=== PATIENT | female | born 1990 | race Caucasian/White ===

== ENCOUNTER → 2020-08-10 | Outpatient (CLI) | payer BC ==
[2020-08-10 14:39] VITALS: BP 140/93; PULSE 102; RESP 18; TEMP 98.3; BMI 48.2
[2020-08-10 16:36] LABS: HCT 42.8 % (34.0-46.0); HGB 14.5 gm/dL (11.4-16.0); MCH 27.2 pg (25.0-35.0); MCHC 33.8 g/dL (31.0-37.0); MCV 80.5 fL (80.0-100.0); Mean Platelet Volume 8.3; Platelet Count 286 k/uL (150-450); RBC 5.33 m/uL (3.80-5.40); RDW 14.7 % (11.5-15.5); WBC 10.5 k/uL (3.8-10.6)
[2020-08-11 03:16] LABS: African American GFR (CKD) 142.8 (60.0-200.0); Albumin 4.7 g/dL (3.80-4.90); Albumin/Globulin Ratio 2.14 (1.60-3.17); Calcium 10.6 mg/dL (8.7-10.3); Globulin 2.2 g/dL (1.6-3.3); Non-African American GFR(CKD) 123.2 (60.0-200.0); Potassium 4.3 mmol/L (3.5-5.5); Total Bilirubin 0.4 mg/dL (0.3-1.2); Total Protein 6.9 g/dL (6.2-8.2)
[2020-08-11 03:45] LABS: Folate, Serum 16.2 ng/mL
--- NOTE | 2020-09-08 12:48 | P.HPBAR ---
Bariatric H&P - History & Physicial H&P Date: 08/10/20 History & Physicial: Visit/CC: initial visit Patient initial contact: Initial weight: Initial weight in pounds: Height: 5 ft 4 in Initial BMI: Last weight: Current weight: 127.369 kg Current weight in pounds: 280.80 Current BMI: 48.2 [place] body weight (based on NIH guidelines): 54.431 kg Excess body weight loss: The patient is a 29 year-old F who presents for Bariatric Assessment. Patient presents today for presurgical consultation. She's had lifetime process obesity. Her BMI is 48. She has an excellent understanding of the sleeve gastrectomy. Past Medical History Past Medical History: Thyroid Disorder Additional Past Medical History / Comment(s): hypothyroidism History of Any Multi-Drug Resistant Organisms: None Reported Past Surgical History: Section, Cholecystectomy, Tubal Ligation Additional Past Surgical History / Comment(s): BENIGN TUMOR REMOVED FROM SCALP Past Anesthesia/Blood Transfusion Reactions: No Reported Reaction Additional Past Anesthesia/Blood Transfusion Reaction / Comm: PT ADOPTED. BIOLO GICAL FAMILY HX UNKNOWN Past Psychological History: No Psychological Hx Reported Smoking Status: Never smoker Past Alcohol Use History: None Reported Past Drug Use History: None Reported Surgical - Exam Vital Signs Temp Pulse Resp BP 98.3 F 102 H 18 140/93 08/10/20 14:23 08/10/20 14:23 08/10/20 14:23 08/10/20 14:23 - General well developed, well nourished, no distress - Eyes PERRL - ENT normal pinna - Neck no masses - Respiratory normal expansion - Cardiovascular Rhythm: regular - Abdomen Abdomen: soft, non tender Results - Labs 08/10/20 15:09 08/10/20 15:09 Bariatric Assessment & Plan Plan: Morbid obesity. Patient is an ex-understands the gastric. We went over the risks and benefits of procedure including gastric stapling disruption, bleeding and scarring. She'll be scheduled for EGD. Bariatric Checklist Checklist: Plan: Checklist: EGD: 1. Hiatal hernia: 2. H. Pylori: HgbA1c: Vitamin D: Smoking: Never smoker Primary care physician referral: Dr. Beckman Psychiatry clearance: Cardiology clearance: Sleep study: Diet journal: VTE risk score: VTE risk level: Rehab needs at discharge:
== END ==
LOC: BARWHC3 13:39
PROVIDERS: ATTEND Surgery
DX: E66.01 Morbid (severe) obesity due to excess calories (principal); Z68.42 Body mass index [BMI] 45.0-49.9, adult; E88.81 Metabolic syndrome and other insulin resistance; E55.9 Vitamin D deficiency, unspecified; E03.9 Hypothyroidism, unspecified; Z46.51 Encounter for fitting and adjustment of gastric lap band
CPT/HCPCS: 36415; 80053; 82306; 82607; 82746; 83036; 84425; 85027; 93005; 99211

== ENCOUNTER 2020-09-24 07:16 | Day surgery (SDC) | payer BC ==
[2020-09-21 10:58] VITALS: BMI 49.6
[~2020-09-24 07:16] MED LIST: LACTATED RINGERS 1,000 ML IV SCH
[2020-09-24] MEDS ORDERED: LIDOCAINE 1% (10MG/ML) FOR IV START INTRADERMA ONE (08:20)
[2020-09-24 08:42] VITALS: TEMP 97.7
[2020-09-24] MEDS ORDERED: PROPOFOL 10 MG/ML 20 ML VIAL IV ONE (08:51)
[2020-09-24] MEDS ORDERED: LIDOCAINE 1% INJ 10MG/ML (20 ML MDV) ONE (08:51)
--- NOTE | 2020-09-24 08:54 | P.GSHP ---
History of Present Illness H&P Date: 09/24/20 Chief Complaint: GERD, morbid obesity Is a 29-year-old female who presents today for EGD. She is undergoing workup for sleeve gastrectomy. Her BMI is 50 Past Medical History Past Medical History: Thyroid Disorder Additional Past Medical History / Comment(s): hypothyroidism History of Any Multi-Drug Resistant Organisms: None Reported Past Surgical History: Section, Cholecystectomy, Tubal Ligation Additional Past Surgical History / Comment(s): BENIGN TUMOR REMOVED FROM SCALP Past Anesthesia/Blood Transfusion Reactions: No Reported Reaction Additional Past Anesthesia/Blood Transfusion Reaction / Comment(s): PT ADOPTED. BIOLOGICAL FAMILY HX UNKNOWN. panic attack after gallbladder surgery Past Psychological History: Anxiety Smoking Status: Never smoker Past Alcohol Use History: None Reported Past Drug Use History: None Reported Medications and Allergies Home Medications Medication Instructions Recorded Confirmed Type Multivitamins, Thera [Multivitamin 1 tab PO DAILY 08/10/20 09/21/20 History (formulary)] Ergocalciferol [Vitamin D2 (1250 1,250 mcg PO DAILY 08/18/20 09/21/20 History Mcg = [id number] Iu)] Allergies Allergy/AdvReac Type Severity Reaction Status Date / Time antibiotic (unk. name) Allergy Unknown Uncoded 09/21/20 10:49 Surgical - Exam Vital Signs Temp Pulse Resp BP Pulse Ox 97.7 F 89 20 153/90 99 09/24/20 08:15 09/24/20 08:15 09/24/20 08:15 09/24/20 08:15 09/24/20 08:15 - General well developed, well nourished, no distress - Eyes PERRL - ENT normal pinna - Neck no masses - Respiratory normal expansion - Cardiovascular Rhythm: regular - Abdomen Abdomen: soft, non tender Assessment and Plan Assessment: GERD Morbid obesity, BMI 50 we'll perform EGD
--- NOTE | 2020-09-24 09:01 | P.OP ---
Date of Procedure: 09/24/20 Preoperative Diagnosis: Morbid obesity GERD Postoperative Diagnosis: Morbid obesity, BMI 50 Antral gastritis Procedure(s) Performed: EGD Anesthesia: MAC Surgeon: Luis F Santo Pathology: other (Antrum) Condition: stable Disposition: PACU Description of Procedure: The patient's placed on the operating table in the lateral position. She received IV sedation. The gastroscope some placed oropharynx passed in the esophagus into the stomach. Scope was placed through the pylorus. First and second portion of the duodenum appeared normal. Scope was then brought back the antrum this appeared mildly inflamed. A biopsies performed. Scope was unretroflexed and remainder the stomach appeared normal. There was no hiatal hernia. The GE junction was at 47 is. The distal esophagus appeared normal. The proximal esophagus appeared normal. Scope was withdrawn for patient.
[2020-09-24 09:08] VITALS: RESP 16
[2020-09-24 09:36] VITALS: BP 116/82; PULSE 80
== END 2020-09-24 10:00 | disposition home or self-care (01) ==
LOC: ORWHC2ENDO 07:16
PROVIDERS: ATTEND Surgery
DX: K21.9 Gastro-esophageal reflux disease without esophagitis (principal); K29.50 Unspecified chronic gastritis without bleeding; E66.01 Morbid (severe) obesity due to excess calories; Z68.43 Body mass index [BMI] 50.0-59.9, adult; E03.9 Hypothyroidism, unspecified; Z98.890 Other specified postprocedural states; Z88.1 Allergy status to other antibiotic agents
CPT/HCPCS: 81025; 88305; 43239; J2001; J2704

== ENCOUNTER → 2020-10-05 | Outpatient (CLI) | payer BC ==
[2020-10-05 14:58] VITALS: BP 141/73; PULSE 95; RESP 16; TEMP 98.1; BMI 51.5
--- NOTE | 2020-10-13 12:28 | P.HPBAR ---
Bariatric H&P - History & Physicial H&P Date: 10/13/20 History & Physicial: Visit/CC: Pre-Surg Patient initial contact: Initial weight: 127.233 kg Initial weight in pounds: 280.50 Height: 5 ft 2 in Initial BMI: 51.2 Last weight: Current weight: 127.913 kg Current weight in pounds: 282.00 Current BMI: 51.5 [place] body weight (based on NIH guidelines): 49.895 kg Excess body weight loss: The patient is a 29 year-old F who presents for Bariatric Assessment. Patient presents today for presurgical consultation. We'll obtain discussion regarding sleeve gastrectomy. Patient stands the risks and benefits of procedure. She understands the risk of gastric stapling disruption, bleeding and scarring. Her BMI is 52. Past Medical History Past Medical History: Thyroid Disorder Additional Past Medical History / Comment(s): hypothyroidism History of Any Multi-Drug Resistant Organisms: None Reported Past Surgical History: Section, Cholecystectomy, Tubal Ligation Additional Past Surgical History / Comment(s): BENIGN TUMOR REMOVED FROM SCALP Past Anesthesia/Blood Transfusion Reactions: No Reported Reaction Additional Past Anesthesia/Blood Transfusion Reaction / Comm: PT ADOPTED. BIOLOGICAL FAMILY HX UNKNOWN. panic attack after gallbladder surgery Past Psychological History: Anxiety Smoking Status: Never smoker Past Alcohol Use History: None Reported Past Drug Use History: None Reported Surgical - Exam Vital Signs Temp Pulse Resp BP 98.1 F 95 16 141/73 10/05/20 14:51 10/05/20 14:51 10/05/20 14:51 10/05/20 14:51 - General well developed, well nourished, no distress - Eyes PERRL - ENT normal pinna - Neck no masses - Respiratory normal expansion - Cardiovascular Rhythm: regular - Abdomen Abdomen: soft, non tender Bariatric Assessment & Plan Plan: Morbid obesity, BMI 52. Patient be scheduled for EGD and workup for sleeve gastrectomy. Bariatric Checklist Checklist: Plan: Checklist: EGD: 1. Hiatal hernia: 2. H. Pylori: HgbA1c: Vitamin D: Smoking: Never smoker Primary care physician referral: Dr. Beckman Psychiatry clearance: Cardiology clearance: Sleep study: Diet journal: VTE risk score: VTE risk level: Rehab needs at discharge:
== END ==
LOC: BARWHC3 14:26
PROVIDERS: ATTEND Surgery
DX: Z01.818 Encounter for other preprocedural examination (principal); E66.01 Morbid (severe) obesity due to excess calories; Z68.43 Body mass index [BMI] 50.0-59.9, adult; E03.9 Hypothyroidism, unspecified; F41.9 Anxiety disorder, unspecified; Z88.1 Allergy status to other antibiotic agents
CPT/HCPCS: 99211

== ENCOUNTER → 2020-10-12 | Outpatient (CLI) | payer BC ==
[2020-10-12 11:45] VITALS: BMI 51.7
== END ==
LOC: BARWHC3 08:28
PROVIDERS: ATTEND Surgery
DX: E66.01 Morbid (severe) obesity due to excess calories (principal); Z68.43 Body mass index [BMI] 50.0-59.9, adult
CPT/HCPCS: 97804

== ENCOUNTER → 2020-10-14 | Outpatient (CLI) | payer BC ==
[2020-10-14 11:18] LABS: Basophils # (A) 0.1 k/uL (0-0.2); Basophils % (A) 1 %; Eosinophils # (A) 0.1 k/uL (0-0.7); Eosinophils % (A) 2 %; HCT 42.4 % (34.0-46.0); HGB 13.9 gm/dL (11.4-16.0); Lymphocytes # (A) 1.8 k/uL (1.0-4.8); Lymphocytes % (A) 21 %; MCH 26.4 pg (25.0-35.0); MCHC 32.9 g/dL (31.0-37.0); MCV 80.5 fL (80.0-100.0); Mean Platelet Volume 7.8; Monocytes # (A) 0.4 k/uL (0-1.0); Monocytes % (A) 4 %; Neutrophils # (A) 6.2 k/uL (1.3-7.7); Neutrophils % (A) 71 %; Platelet Count 261 k/uL (150-450); RBC 5.26 m/uL (3.80-5.40); WBC 8.7 k/uL (3.8-10.6)
[2020-10-14 11:32] LABS: ALT 30 U/L (4-34); AST 25 U/L (14-36); African American GFR (CKD) >90 (>60 ml/min/1.73 sqM); Albumin 4.4 g/dL (3.5-5.0); Alkaline Phosphatase 72 U/L (38-126); Anion Gap 9 mmol/L; Blood Urea Nitrogen 7 mg/dL (7-17); Calcium 10.7 mg/dL (8.4-10.2); Carbon Dioxide 23 mmol/L (22-30); Chloride 107 mmol/L (98-107); Glucose 91 mg/dL (74-99); Non-African American GFR(CKD) >90 (>60 ml/min/1.73 sqM); Potassium 4.9 mmol/L (3.5-5.1); Sodium 139 mmol/L (137-145); Total Bilirubin 0.3 mg/dL (0.2-1.3); Total Protein 7.1 g/dL (6.3-8.2)
== END | disposition home or self-care (01) ==
LOC: LABPAT 10:17
PROVIDERS: ATTEND Surgery
DX: Z01.812 Encounter for preprocedural laboratory examination (principal)
CPT/HCPCS: 36415; 80053; 85025

== ENCOUNTER 2020-10-28 | Inpatient (IN) | payer BC | END 2020-10-30 17:56 | disposition home or self-care (01) | DRG 621 | PROVIDERS: ADMIT Surgery | PROC: 0DB64Z3 Excision of Stomach, Percutaneous Endoscopic Approach, Vertical (ICD-10-PCS; principal; 2020-10-28) | CPT/HCPCS: 74240; 80051; 80053; 81025; 82310; 82565; 83605; 83735; 84100; 84443; 84484; 84520; 85025; 88307; 93005; 94640; 94760; 94762 ==

== ENCOUNTER → 2020-11-16 | Outpatient (CLI) | payer BC ==
[2020-11-16 13:22] VITALS: BP 112/79; PULSE 66; RESP 16; TEMP 98; BMI 46.7
--- NOTE | 2020-11-16 14:09 | P.HPBAR ---
Bariatric H&P - History & Physicial H&P Date: 11/16/20 History & Physicial: Visit/CC: f/u Patient initial contact: Initial weight: 127.233 kg Initial weight in pounds: 280.50 Height: 5 ft 2 in Initial BMI: 51.2 Last weight: Current weight: 116.12 kg Current weight in pounds: 256.00 Current BMI: 46.7 [place] body weight (based on NIH guidelines): 49.895 kg Excess body weight loss: 14.3% The patient is a 30 year-old F who presents for Bariatric Assessment. Patient resents today for bariatric follow-up. She lost another 6 pounds. She's had some minimal GERD. Past Medical History Past Medical History: Thyroid Disorder Additional Past Medical History / Comment(s): hypothyroidism, pt states she is on high protein diet per . History of Any Multi-Drug Resistant Organisms: None Reported Past Surgical History: Bariatric Surgery, Section, Cholecystectomy, Tubal Ligation Additional Past Surgical History / Comment(s): BENIGN TUMOR REMOVED FROM SCALP. GASTRIC SLEEVE 10/28/20. sleeve gastrectomy 10-28-20 Past Anesthesia/Blood Transfusion Reactions: No Reported Reaction Additional Past Anesthesia/Blood Transfusion Reaction / Comm: PT ADOPTED. BIOLOGICAL FAMILY HX UNKNOWN. panic attack after gallbladder surgery Past Psychological History: Anxiety Smoking Status: Never smoker Past Alcohol Use History: None Reported Past Drug Use History: None Reported - Past Family History Mother Family Medical History: Unable to Obtain Additional Family Medical History / Comment(s): ADOPTED Surgical - Exam Vital Signs Temp Pulse Resp BP 98 F 66 16 112/79 11/16/20 13:20 11/16/20 13:20 11/16/20 13:20 11/16/20 13:20 - General well developed, well nourished, no distress - Eyes PERRL - ENT normal pinna - Neck no masses - Respiratory normal expansion - Cardiovascular Rhythm: regular - Abdomen Abdomen: soft, non tender Bariatric Assessment & Plan Plan: Status post sleeve gastrectomy. Patient's GERD is minimal clear. She's had excellent weight loss. She'll follow-up in 4 weeks. Bariatric Checklist Checklist: Plan: Checklist: EGD: 1. Hiatal hernia: 2. H. Pylori: HgbA1c: Vitamin D: Smoking: Never smoker Primary care physician referral: Dr. Beckman Psychiatry clearance: Cardiology clearance: Sleep study: Diet journal: VTE risk score: VTE risk level: Rehab needs at discharge:
== END ==
LOC: BARWHC3 12:33
PROVIDERS: ATTEND Surgery
DX: Z09 Encounter for follow-up examination after completed treatment for conditions other than malignant neoplasm (principal); E66.01 Morbid (severe) obesity due to excess calories; K21.9 Gastro-esophageal reflux disease without esophagitis; E03.9 Hypothyroidism, unspecified; F41.0 Panic disorder [episodic paroxysmal anxiety]; F41.9 Anxiety disorder, unspecified; Z98.84 Bariatric surgery status; Z88.1 Allergy status to other antibiotic agents; Z68.42 Body mass index [BMI] 45.0-49.9, adult
CPT/HCPCS: 97803; 99211

== ENCOUNTER → 2021-02-01 | Outpatient (CLI) | payer BC ==
[2021-02-01 13:42] VITALS: BP 133/83; PULSE 86; RESP 18; TEMP 98.3; BMI 41.3
[2021-02-01 15:05] LABS: HCT 42.4 % (34.0-46.0); HGB 14.2 gm/dL (11.4-16.0); MCH 27.4 pg (25.0-35.0); MCHC 33.5 g/dL (31.0-37.0); MCV 81.9 fL (80.0-100.0); Mean Platelet Volume 8.7; Platelet Count 291 k/uL (150-450); RBC 5.17 m/uL (3.80-5.40); RDW 14.7 % (11.5-15.5)
--- NOTE | 2021-02-01 16:55 | P.HPBAR ---
Bariatric H&P - History & Physicial H&P Date: 02/01/21 History & Physicial: Visit/CC: follow up Patient initial contact: Initial weight: 127.233 kg Initial weight in pounds: 280.50 Height: 5 ft 2 in Initial BMI: 51.2 Last weight: Current weight: 102.512 kg Current weight in pounds: 226.00 Current BMI: 41.3 [place] body weight (based on NIH guidelines): 49.895 kg Excess body weight loss: 31.9% The patient is a 30 year-old F who presents for Bariatric Assessment. Patient presents today for her follow-up. She is an excellent weight loss. She's had mild GERD. Past Medical History Past Medical History: Thyroid Disorder Additional Past Medical History / Comment(s): hypothyroidism, pt states she is on high protein diet per . History of Any Multi-Drug Resistant Organisms: None Reported Past Surgical History: Bariatric Surgery, Section, Cholecystectomy, Tubal Ligation Additional Past Surgical History / Comment(s): BENIGN TUMOR REMOVED FROM SCALP. GASTRIC SLEEVE 10/28/20. sleeve gastrectomy 10-28-20 Past Anesthesia/Blood Transfusion Reactions: No Reported Reaction Additional Past Anesthesia/Blood Transfusion Reaction / Comm: PT ADOPTED. BIOLOGICAL FAMILY HX UNKNOWN. panic attack after gallbladder surgery Past Psychological History: Anxiety Smoking Status: Never smoker Past Alcohol Use History: None Reported Past Drug Use History: None Reported - Past Family History Mother Family Medical History: Unable to Obtain Additional Family Medical History / Comment(s): ADOPTED Surgical - Exam Vital Signs Temp Pulse Resp BP 98.3 F 86 18 133/83 02/01/21 13:39 02/01/21 13:39 02/01/21 13:39 02/01/21 13:39 - General well developed, well nourished, no distress - Eyes PERRL - ENT normal pinna - Neck no masses - Respiratory normal expansion - Cardiovascular Rhythm: regular - Abdomen Abdomen: soft, non tender Results - Labs 02/01/21 13:59 Bariatric Assessment & Plan Plan: Status post sleeve history. Patient is minimal will be observed. She'll follow-up in 3 months. Bariatric Checklist Checklist: Plan: Checklist: EGD: 1. Hiatal hernia: 2. H. Pylori: HgbA1c: Vitamin D: Smoking: Never smoker Primary care physician referral: Dr. Beckman Psychiatry clearance: Cardiology clearance: Sleep study: Diet journal: VTE risk score: VTE risk level: Rehab needs at discharge:
[2021-02-01 21:32] LABS: % Iron Saturation 6.82 (12.00-45.00); Ferritin 11.4 ng/mL (10.0-291.0); Iron 25 ug/dL (50-170); Magnesium 2.3 mg/dL (1.5-2.4); Total Iron Binding Capacity 367 ug/dL (228-460)
[2021-02-02 08:27] LABS: ALT 12 U/L (8-44); AST 13 U/L (13-35); African American GFR (CKD) 140.1 (60.0-200.0); Albumin 4.5 g/dL (3.8-4.9); Albumin/Globulin Ratio 1.89 (1.60-3.17); Alkaline Phosphatase 59 U/L (41-126); BUN/Creat Ratio 12.88 Ratio (12.00-20.00); Calcium 10.9 mg/dL (8.7-10.3); Carbon Dioxide 18.2 mmol/L (21.6-31.8); Chloride 103 mmol/L (96-109); Globulin 2.4 g/dL (1.6-3.3); Glucose 88 mg/dL (70-110); Non-African American GFR(CKD) 120.9 (60.0-200.0); Potassium 4.5 mmol/L (3.5-5.5); Sodium 133 mmol/L (135-145); Total Protein 6.9 g/dL (6.2-8.2)
[2021-02-02 14:03] LABS: Zinc, Serum 72 ug/dL (60-130)
[2021-02-02 18:45] LABS: Folate, Serum >20.00 ng/mL (4.40-31.00)
[2021-02-03 05:51] LABS: Vitamin A 33 ug/dL (38-106)
[2021-02-03 06:03] LABS: Vit B1(Thiamine) 61 ug/L (38-122)
== END ==
LOC: BARWHC3 13:07
PROVIDERS: ATTEND Surgery
DX: E66.01 Morbid (severe) obesity due to excess calories (principal); K21.9 Gastro-esophageal reflux disease without esophagitis; E03.9 Hypothyroidism, unspecified; F41.9 Anxiety disorder, unspecified; Z98.84 Bariatric surgery status; Z71.3 Dietary counseling and surveillance; Z68.41 Body mass index [BMI] 40.0-44.9, adult; Z88.1 Allergy status to other antibiotic agents
CPT/HCPCS: 80053; 82306; 82607; 82728; 82746; 83540; 83550; 83735; 84255; 84425; 84443; 84590; 84630; 85027; 97803; 99211